=== PATIENT | female | born 1950 | race Caucasian/White ===

== ENCOUNTER 2018-08-25 13:55 | Inpatient (IN) | payer MEDICARE, BC ==
[~2018-08-25] VITALS: Ht 160 cm; Wt 52.2 kg
[2018-09-14] VITALS (13 sets, daily range): BP systolic 110–142; BP diastolic 45–80; PULSE 59–90; TEMP 97.3–99.5
[2018-09-14] MEDS ORDERED: TOPROL XL 25MG25 MG PO (10:07)
[2018-09-14] MEDS ORDERED: HCTZ12.5TAB PO (10:07)
[2018-09-14] MEDS ORDERED: COZAAR 25MG25 MG/TAB PO (10:07)
[2018-09-14] MEDS ORDERED: PRAVACHOL 40MG40 MG PO (10:08)
[2018-09-14] MEDS ORDERED: ESTRACE 1MG1 MG/TAB PO (10:08)
[2018-09-14] MEDS ORDERED: CENTRUM SILVER1 CTB PO (10:08)
[2018-09-14] MEDS ORDERED: OYSCO 500 + D 51 TAB PO (10:09)
[2018-09-14] MEDS ORDERED: NATURAL POTASS595 MG PO (10:10)
--- NOTE | 2018-09-14 16:43 | NUR ---
Patient came up to the unit at 1545. Noted to be drowsy, but arousable to name and touch. Spouse at bedside. IVF running to left forearm. Site remains free from redness, swelling, and drainage. Patient grimaces every once in awhile in pain, but continues to have eyes closed. Patient did wake up once and complain of intense pain to right abdomen. Heating pad given. Patient noted to rest well after this. 5 lap sites noted to right side of abdomen. Bandaids covering sites with no drainage noted. Will review medications and allergies when patient is more alert.
--- NOTE | 2018-09-14 17:38 | NUR ---
Patient resting in bed with eyes closed and snoring. Resting comfortably with no visible signs of pain. Respirations have improved in frequency to 14-16 and they appear deeper. Patient arousable, but still pretty groggy. Spouse has left for the evening, stating he lives 90 miles away. IVF continue to run with no problems. IV site remains free from redness, swelling, or drainage. Indwelling catheter draining clear, yellow urine.
--- NOTE | 2018-09-14 18:22 | NUR ---
Patient woke up when this nurse entered the room. Stated she felt like she was having a dream and that she needed to pee. This nurse reoriented patient and told her she had a catheter. Patient said, "Oh yeah, it was just a very vivid dream." Oriented x4. Patient denies pain at this time. Post-op vitals WNL. Medications and allergies reviewed with patient. Urinary catheter emptied and 75 ml of yellow urine noted. Call light in reach and patient educated on how to use it. Denied any other clear liquids. IVF running at 75ml/hr per order.
--- NOTE | 2018-09-14 18:39 | NUR ---
Patient resting in bed with eyes closed. Will report off to marine fisheries technician.
--- NOTE | 2018-09-14 20:20 | NUR ---
Ambulated with patient around the surgical unit. Steady gait. Is alert and oriented x3. Back to bed. [place]on with yellow urine. IVF infusing to left forearm without redness or swelling. Lap sites to abdomen with bandaids D/I. Took clear liquid dinner poorly, kept falling asleep.
--- NOTE | 2018-09-15 03:00 | NUR ---
Patient awakens to name. Denies pain or nausea. Reports resting well. IV antibiotic and IVF infusing without problem to left forearm.
[2018-09-15 03:40] VITALS: BP 103/48; PULSE 75; TEMP 98.6
[2018-09-15 07:12] LABS: BASO % 0.1 % (0.0-2.0); GRAN # 10.8 (1.4-6.5); GRAN % 84.1 % (42.2-75.2); HEMOGLOBIN 11.6 g/dl (12.5-16.0); LYMPH # 1.1 (1.2-3.4); LYMPH % 8.4 % (20.0-51.0); MEAN CELL VOLUME 90 fl (80.0-100.0); MEAN CORPUSCULAR HEMOGLOBIN 30 pg (27.0-31.0); MEAN CORPUSCULAR HGB CONC 34 g/dl (33.0-37.0); MEAN PLATELET VOLUME 10.5 fl (7.4-10.4); MONO # 0.9 (0.1-0.6); MONO % 6.9 % (1.7-9.3); PLATELET COUNT 215 K/mm3 (130-400); RED BLOOD COUNT 3.85 M/mm3 (4.10-5.30); REDCELL DISTRIBUTION WIDTH-CV 13.5 % (11.5-14.5)
[2018-09-15 07:20] LABS: HEMATOCRIT 34.5 % (37.0-47.0)
[2018-09-15 07:22] LABS: CALCIUM 8.3 mg/dL (8.4-10.2); CREATININE, serum 0.73 (0.52-1.25); POTASSIUM 3.9 mmol/L (3.4-5.0)
[2018-09-15 08:17] VITALS: BP 119/55; PULSE 64; TEMP 98
--- NOTE | 2018-09-15 09:55 | NUR ---
Patient is sitting up in bed eating breakfast. She is rating her pain at 7 on a 0-10 scale to right rib area. She stated the ultram did not seem to help at all last night for that pain. Roxicodone given. Denies nausea. She is going to walk after eating breakfast. Explained she needs to try sitting up in the chair after her walke. No other changes at this time. Call light within reach.
--- NOTE | 2018-09-15 10:23 | NUR ---
FELTON brewer met with the patient to discuss discharge planning. The patient lives with her , Nav, in [place]. The patients PCP is Dr. Violetta Rooney and gets her medication from [facility] in [place]. The patient reports no issues getting her medication. The patient reports independent with ADLs and has no DME. The patient does not have Advanced Directives but she was interested in obtaining a form for DPOA-[facility]. FELTON brewer provided a copy. The patient plans to return home with upon discharge. No additional needs at this time.
[2018-09-15 12:12] VITALS: BP 139/56; PULSE 63; TEMP 97.2
[2018-09-15 16:03] VITALS: BP 136/60; PULSE 70; TEMP 98.1
--- NOTE | 2018-09-15 18:20 | NUR ---
Patient resting in bed. Pain rated 3 out of 10 on numeric scale. Ambulated around nurses station at 1730. Patient ordered dinner. Call light within reach. Reported off to Ana Maria JIMENEZ.
--- NOTE | 2018-09-15 19:15 | NUR ---
Patient is doing great. She continues to have pain off and on to her right rib area. Report given to Fausto JIMENEZ. She is going to give the patient pain medications. She just got her supper. Denies nausea. No other changes at this time. Call light within reach.
[2018-09-15 19:30] VITALS: BP 139/59; PULSE 66; TEMP 99.2
--- NOTE | 2018-09-15 19:50 | NUR ---
Pt. sitting up in bed watching TV. Pt. is A&OX3, assessment complete. INT to lt. forearm patent. Abd. lap sites X5 CDI with bandaids. Pt. reports pain to the abd. at a 7 on pain scale. Gave pain meds per orders. Pt. denies further needs, call light within reach.
[2018-09-15 23:37] VITALS: BP 105/45; PULSE 58; TEMP 97.9
[2018-09-16 04:00] VITALS: BP 132/60; PULSE 63; TEMP 97.7
--- NOTE | 2018-09-16 08:00 | NUR ---
Patient alert and oriented, answers questions appropriately. See assessment. Abdomen soft, non distended, non tender. Bowel sounds hyperactive x4 quads. +Flatus. Lap sites x5 to abdomen with edges well approximated, no drainage noted. No c/o at this time.
[2018-09-16 08:28] VITALS: BP 116/62; PULSE 77; TEMP 98.4
--- NOTE | 2018-09-16 08:34 | NUR ---
patient is resitng in bed. Incision sites to abdomen remains open to air. Incisons are CDI. No edema, redness, or drainage noted to right hand peripheral line. Pain rated @ 4/10. She voices no complaints at this time. Call light within reach. Will continue to monitor.
--- NOTE | 2018-09-16 11:21 | NUR ---
First visit from the manager nursing home. No needs right now.
[2018-09-16 12:16] VITALS: BP 127/56; PULSE 69; TEMP 97.1
--- NOTE | 2018-09-16 12:21 | NUR ---
Patient is resting in bed. no drainage, edema, or redness noted to left hand INT site. Abdomen incisions remains CDI. patient rates pain @ 2/10. She voices no complaints at this time. Call light within reach. Will continue to monitor.
[2018-09-16 16:03] VITALS: BP 120/57; PULSE 60; TEMP 97.3
--- NOTE | 2018-09-16 18:22 | NUR ---
Pt currently sitting up in bed. Pt ambulated down the hallway with stand by assistance. Pt had no complaints of pain at this time. Bed is in lowest postion, call light is within reach. Reported off to nurse BARBARA Edmonds
[2018-09-16 19:21] VITALS: BP 137/55; PULSE 70; TEMP 97.7
--- NOTE | 2018-09-16 20:15 | NUR ---
Pt. sitting up in bed watching TV at this time. Pt. is A&OX3, assessment complete. Five abdominal lap sites noted, MEDICAL VOUCHER CLERK, edges well approximated. Pt. reports pain at a 3 on pain scale at this time. Pt. denies the need for pain meds at this time, but would like pain meds before bed. Will give per orders. Pt. denies further needs at this time. Call light within reach.
[2018-09-16 23:24] VITALS: BP 124/58; PULSE 66; TEMP 98.1
[2018-09-17 03:35] VITALS: BP 125/62; PULSE 67; TEMP 98.5
[2018-09-17 07:40] VITALS: BP 124/51; PULSE 64; TEMP 98.3
--- NOTE | 2018-09-17 10:00 | NUR ---
Patient has been doing well this am. She is hoping to go home. She has been independent in the room. She is toleratating her diet without nausea. Minimal complaints of pain at this time. She ate breakfast. No other changes at this time. Call light within reach.
[2018-09-17] MEDS ORDERED: ROXICODONE 55 MG/TAB PO ×2 (12:46→14:11)
[2018-09-17] MEDS ORDERED: TYLENOL 500MG500 MG PO (12:50)
--- NOTE | 2018-09-17 14:45 | NUR ---
Patient is discharging home. Discharge instructions discussed with patient. Explained when follow up is. She has a script for pain medications to get filled. All belongings packed up and sent with patient. Copies of discharge instructions sent with patient. Patient walked out with Mike MACIAS.
== END 2018-09-17 15:00 | disposition home or self-care (01) | DRG 331 ==
LOC: INPTSU 09-14 09:19 → SURG 09-14 12:45
PROVIDERS: ADMIT Surgery
PROC: 8E0W4CZ Robotic Assisted Procedure of Trunk Region, Percutaneous Endoscopic Approach (ICD-10-PCS; 2018-09-14)
PROC: 0DJD8ZZ Inspection of Lower Intestinal Tract, Via Natural or Artificial Opening Endoscopic (ICD-10-PCS; 2018-09-14)
PROC: 0DTN4ZZ Resection of Sigmoid Colon, Percutaneous Endoscopic Approach (ICD-10-PCS; principal; 2018-09-14 12:45)
DX: K57.32 Diverticulitis of large intestine without perforation or abscess without bleeding (principal); I10 Essential (primary) hypertension; E78.00 Pure hypercholesterolemia, unspecified
CPT/HCPCS: A4314; A9284; J0690; J1100; J1650; J2370; J2405; J2550; J2704; J2710; J3010; J7120